=== PATIENT | male | born 1955 | race Caucasian/White ===

== ENCOUNTER 2022-11-03 16:54 | Inpatient (IN) | payer MEDICARE, MEDICAID ==
[~2022-11-03] VITALS: Ht 188 cm; Wt 88.6 kg
[2022-11-03 17:38] LABS: BASOPHILS # (AUTO) 0.1 X10'3 (0-0.2); BASOPHILS % (AUTO) 0.3 % (0-1); EOSINOPHILS # (AUTO) 0.4 X10'3 (0-0.9); EOSINOPHILS % (AUTO) 1.8 % (0-6); HEMATOCRIT 47.1 % (42.0-52.0); HEMOGLOBIN 16.1 g/dl (14.0-17.9); LYMPHOCYTES # (AUTO) 2.6 X10'3 (1.1-4.8); MEAN CORPUSCULAR HEMOGLOBIN 32.2 PG (27.0-31.0); MEAN CORPUSCULAR HGB CONC 34.2 g/dL (33.0-36.5); MEAN CORPUSCULAR VOLUME 94.2 FL (78-98); MONOCYTES # (AUTO) 1.2 X10'3 (0-0.9); MONOCYTES % (AUTO) 6.2 % (2-12); NEUTROPHILS # (AUTO) 15.5 X10'3 (1.8-7.7); NEUTROPHILS % (AUTO) 78.7 % (42-75); PLATELET COUNT 332 X10'3 (140-440); RED CELL DISTRIBUTION WIDTH 13.2 % (11.5-14.5); WHITE BLOOD COUNT 19.7 X10'3 (4.5-11.0)
[2022-11-03 17:58] LABS: ALANINE AMINOTRANSFERASE 18 U/L (12-78); ALBUMIN 3.3 G/DL (3.4-5.0); ALBUMIN/GLOBULIN RATIO 0.7 (1.1-1.5); ALKALINE PHOSPHATASE 107 IU/L (46-116); ANION GAP 11 (8-16); ASPARTATE AMINO TRANSFERASE 14 U/L (10-37); BILIRUBIN,TOTAL 0.3 MG/DL (0.1-1.0); BLOOD UREA NITROGEN 16 MG/DL (7-18); BUN/CREATININE RATIO 13.7 (10.0-20.0); CALCIUM 9.3 MG/DL (8.5-10.1); CHLORIDE 95 MMOL/L (99-107); CREATININE 1.17 MG/DL (0.60-1.10); GLUCOSE 203 MG/DL (70-104); POTASSIUM 4.3 MMOL/L (3.5-5.1); SODIUM 130 MMOL/L (135-145); TOTAL CARBON DIOXIDE 23.6 MMOL/L (24-32); TOTAL PROTEIN 7.8 G/DL (6.4-8.2); eGFR 63 ML/MIN
[2022-11-03] MEDS ORDERED: CefTRIAXone/D5W-Rocephin 1gm 50 ML IV ONE (19:35)
[2022-11-03] MEDS ORDERED: morphine 4 MG/ML inj SYRINge IV ONE (19:40)
--- NOTE | 2022-11-03 20:11 | NUR ---
ivp x2 given by propellant charge zone assembler snack provided
--- NOTE | 2022-11-03 20:15 | NUR ---
us at bedside
[2022-11-03] MEDS ORDERED: temazepam 15mg capsule PO PRN (21:00)
[2022-11-03] MEDS ORDERED: HYDROcodone/acetaminophen 5mg/325mg tablet PO PRN (21:30)
[2022-11-03] MEDS ORDERED: morphine 2 MG/ML inj. syringe IV PRN (21:30)
[2022-11-03] MEDS ORDERED: acetaminophen 325mg tablet PO PRN ×2 (21:30)
[2022-11-03] MEDS ORDERED: mag hydrox/Alum hydrox/simeth 30ml oral suspension PO PRN (21:30)
[2022-11-03] MEDS ORDERED: diphenhydrAMINE 50 mg/ml inj IV PRN (21:30)
[2022-11-03] MEDS ORDERED: bisacodyl 10mg suppository rectal RC PRN (21:30)
[2022-11-03] MEDS ORDERED: ondansetron/PF 4mg/2ml inj IV PRN (21:30)
[2022-11-03] MEDS ORDERED: acetaminophen 650mg rectal suppository RC PRN (21:30)
[2022-11-03] MEDS ORDERED: magnesium 2GM in 50ml NS 50 ML IV PRN (21:30)
[2022-11-03] MEDS ORDERED: diphenhydrAMINE 25mg capsule PO PRN (21:30)
[2022-11-03] MEDS ORDERED: magnesium hydroxide 30ml (MOM) UD suspension PO PRN (21:30)
[2022-11-03] MEDS ORDERED: ondansetron 4mg rapidly disintigrating tab PO PRN (21:30)
[2022-11-03] MEDS ORDERED: magnesium 4gm in 100ml NS 100 ML IV PRN (21:30)
[2022-11-03] MEDS ORDERED: magnesium Cl slow-release 64mg tablet PO PRN (21:30)
[2022-11-03] MEDS ORDERED: dextrose 50%-water 50ml dispensing syringe IV PRN ×2 (21:40)
[2022-11-03] MEDS ORDERED: DEXTROSE 15 GM of carb/4 tabs (each vial/BOTTLE has 4 tablets) PO PRN ×2 (21:40)
[2022-11-03] MEDS ORDERED: glucagon, human recombinant 1mg kit SUBCUT PRN (21:40)
[2022-11-03] MEDS ORDERED: MESSAGE TO PHARMACY PO ONE (21:40)
[2022-11-03 21:56] LABS: HEMOGLOBIN A1C 8.5 % (4.5-6.2)
[2022-11-03] MEDS: normal saline 1000ml 1,000 ML IV SCH (22:06)
[2022-11-03] MEDS ORDERED: VANCOMYCIN 1,500MG inj. 1,500 MG in normal saline 500ml IV soln 300 ML IV SCH (22:10)
[2022-11-03 22:16] LABS: APTT 29 SECONDS (22-32)
[2022-11-03 22:22] LABS: MAGNESIUM 1.9 MG/DL (1.5-2.4); PHOSPHORUS 3.8 MG/DL (2.3-4.5)
[2022-11-03] MEDS ORDERED: TRAM50TA2 PO (23:04)
[2022-11-03] MEDS ORDERED: METF-438 PO (23:04)
[2022-11-03] MEDS ORDERED: METF-436 PO (23:15)
[2022-11-04] MEDS ORDERED: piperacillin/tazo 3.375gm/50ml 50 ML IV SCH
[2022-11-04 01:33] LABS: CLARITY,URINE CLEAR (Clear); COLOR,URINE YELLOW (Yellow); GLUCOSE, URINE 250 mg/dl (Neg); KETONES,URINE TRACE mg/dl (Neg); LEUKOCYTE ESTERASE ,URINE NEGATIVE (Neg); NITRITES, URINE NEGATIVE (Neg); OCCULT BLOOD,URINE NEGATIVE (Neg); PROTEIN,URINE NEGATIVE (Neg); UROBILINOGEN,URINE 0.2 E.U/dL (0.2-1.0)
[2022-11-04 01:51] LABS: URINE AMPHETAMINE SCREEN NEGATIVE (Neg); URINE BARBITUATE SCREEN NEGATIVE (Neg); URINE BENZODIAZEPINES SCREEN NEGATIVE (Neg); URINE CANNABINOID SCREEN NEGATIVE (Neg); URINE COCAINE SCREEN NEGATIVE (Neg); URINE METHADONE SCREEN NEGATIVE (Neg); URINE OPIATE SCREEN POSITIVE (Neg); URINE PHENCYCLIDINE SCREEN NEGATIVE (Neg)
[2022-11-04 02:02] LABS: UA COLLECTION TYPE CLN CATCH MIDSTREAM
[2022-11-04] MEDS: normal saline 1000ml 1,000 ML IV SCH ×2 (05:23→21:50)
[2022-11-04 07:05] VITALS: BP 149/77
[2022-11-04] MEDS: docusate sod 100mg capsule PO SCH ×2 (08:00→19:34)
[2022-11-04] MEDS: CefTRIAXone/D5W-Rocephin 1gm 50 ML IV SCH (08:44)
[2022-11-04] MEDS: pantoprazole 40mg Tablet.DR PO SCH (08:47)
[2022-11-04 08:54] LABS: BASOPHILS # (AUTO) 0.1 X10'3 (0-0.2); BASOPHILS % (AUTO) 0.5 % (0-1); EOSINOPHILS # (AUTO) 0.4 X10'3 (0-0.9); EOSINOPHILS % (AUTO) 2.3 % (0-6); HEMATOCRIT 43.6 % (42.0-52.0); HEMOGLOBIN 14.5 g/dl (14.0-17.9); LYMPHOCYTES # (AUTO) 1.4 X10'3 (1.1-4.8); LYMPHOCYTES % (AUTO) 8.9 % (21-51); MEAN CORPUSCULAR HEMOGLOBIN 31.8 PG (27.0-31.0); MEAN CORPUSCULAR HGB CONC 33.3 g/dL (33.0-36.5); MEAN CORPUSCULAR VOLUME 95.5 FL (78-98); MONOCYTES # (AUTO) 0.9 X10'3 (0-0.9); MONOCYTES % (AUTO) 5.9 % (2-12); NEUTROPHILS # (AUTO) 13.3 X10'3 (1.8-7.7); NEUTROPHILS % (AUTO) 82.4 % (42-75); PLATELET COUNT 276 X10'3 (140-440); RED BLOOD COUNT 4.57 X10'6 (4.70-6.10); RED CELL DISTRIBUTION WIDTH 12.9 % (11.5-14.5); WHITE BLOOD COUNT 16.1 X10'3 (4.5-11.0)
[2022-11-04] MEDS: heparin, porcine 5000 units/ml vial SQ SCH ×2 (08:58→19:34)
[2022-11-04 09:11] LABS: ALANINE AMINOTRANSFERASE 16 U/L (12-78); ALBUMIN 2.9 G/DL (3.4-5.0); ALBUMIN/GLOBULIN RATIO 0.7 (1.1-1.5); ALKALINE PHOSPHATASE 86 IU/L (46-116); ANION GAP 7 (8-16); ASPARTATE AMINO TRANSFERASE 11 U/L (10-37); BILIRUBIN,TOTAL 0.5 MG/DL (0.1-1.0); BLOOD UREA NITROGEN 12 MG/DL (7-18); CALCIUM 8.7 MG/DL (8.5-10.1); CHLORIDE 99 MMOL/L (99-107); CHOL/HDL RATIO 3.5 (0.00-4.99); CHOLESTEROL 135 MG/DL (0-200); GLUCOSE 185 MG/DL (70-104); HDL CHOLESTEROL 39 MG/DL (35-60); LDL CHOLESTEROL 82 MG/DL (50-100); MAGNESIUM 1.9 MG/DL (1.5-2.4); POTASSIUM 4.3 MMOL/L (3.5-5.1); SODIUM 134 MMOL/L (135-145); TOTAL CARBON DIOXIDE 28.5 MMOL/L (24-32); TOTAL PROTEIN 7.3 G/DL (6.4-8.2); TRIGLYCERIDES 86 MG/DL (20-135); eGFR 75 ML/MIN
[2022-11-04] MEDS: vancomycin/NS 1 GM ADD-VANTAGE 250 ML IV SCH ×2 (11:46→22:09)
--- NOTE | 2022-11-04 14:03 | NUR ---
DIABETIC FOOT CARE EDUCATION PROVIDED BY WOUND CARE * Wash your feet daily with lukewarm water and soap. * Dry your feet well, especially between the toes. * Keep the skin moisturized with lotion, but do not apply it between the toes. * Check your feet for blisters, cuts or sores. * Use an emery board to shape your toenails even with the ends of your toes. * Change daily into clean, soft socks or stockings, not too big or too small. * Keep your feet warm and dry. * Preferably wear special padded socks and shoes that fit well. * Never walk barefoot indoors or outdoors. * Examine your shoes everyday for cracks, kiah, nails or anything that could hurt your feet. * Tell your doctor if you find any of these problems or have any concerns after examining your feet.
--- NOTE | 2022-11-04 14:04 | NUR ---
DM Consult "new T2DM": Pt admit DX L great toe cellulitis/ulcer secondary to LLE PVD, tobacco abuse, new onset T2DM A1C 8.5%, hyponatremia, and [place] per EMR. L great toe DM ulcer eschar without staging per [facility] note. Pt seen by RD at bedside for written/verbal DM diet ed w/ RD contact information provided. Pt reports ex- of 27 years who recently passed had DM so he's very familiar with it; pt reports recalling MD mentioning Glu management but not DM specifically. RD gave pt written DM diet ed guidelines for "general healthy eating and Glu management purposes" since unsure if pt aware of DM, verbal high protein diet ed, and encouraged pt to contact dietitian's office if further nutrition questions/concerns. RD notified RN regarding pt not being fully aware of DM DX this admit. Pt PO 100% first meal WB visualized during RD visit; is agreeable to double protein TIDWM to better meet needs dietary notified. No BM yet just admit yesterday refused routine colace this AM per EMR. Will continue to follow. Rec: 1. continue carb controlled diet; double proteins TIDWM for satiety and to better meet estimated needs given large stature 2. monitor PO trends for ONS needs 3. routine bowel care 4. scaled wt this admit Addendum: 11/04/22 at [address] Amended: Links added.
[2022-11-04] MEDS ORDERED: iohexol 350 MG/ML 50ML vial IV ONE (14:48)
[2022-11-04] MEDS ORDERED: iohexol 350MG/ML 100ml bottle IV ONE (14:48)
[2022-11-04 18:00] VITALS: BP 130/82
--- NOTE | 2022-11-04 18:43 | NUR ---
Patient in room ORTHO 4009. I have received report from TAM Duff and had the opportunity to ask questions and assume patient care.
[2022-11-04] MEDS: insulin Lispro (HumaLOG) vial - multi-dose SQ SCH (19:40)
[2022-11-04] MEDS: insulin glargine (Lantus) pen - multi-dose SQ SCH (21:00)
[2022-11-04 22:00] VITALS: BP 140/65
[2022-11-05 06:00] VITALS: BP 140/75
[2022-11-05] MEDS: normal saline 1000ml 1,000 ML IV SCH ×3 (06:00→20:59)
--- NOTE | 2022-11-05 06:35 | NUR ---
Problems reprioritized. Patient report given, questions answered & plan of care reviewed with TAM Moser.
--- NOTE | 2022-11-05 06:57 | NUR ---
Patient in room ORTHO 4009. I have received report from TAM Jacobson and had the opportunity to ask questions and assume patient care.
[2022-11-05 07:15] LABS: BASOPHILS # (AUTO) 0.1 X10'3 (0-0.2); BASOPHILS % (AUTO) 0.7 % (0-1); EOSINOPHILS # (AUTO) 0.2 X10'3 (0-0.9); EOSINOPHILS % (AUTO) 1.7 % (0-6); HEMATOCRIT 41.7 % (42.0-52.0); LYMPHOCYTES # (AUTO) 2.1 X10'3 (1.1-4.8); LYMPHOCYTES % (AUTO) 14.8 % (21-51); MEAN CORPUSCULAR HEMOGLOBIN 31.8 PG (27.0-31.0); MEAN CORPUSCULAR HGB CONC 33.6 g/dL (33.0-36.5); MEAN CORPUSCULAR VOLUME 94.8 FL (78-98); MEAN PLATELET VOLUME 8.3 FL (7.4-10.4); MONOCYTES # (AUTO) 0.8 X10'3 (0-0.9); MONOCYTES % (AUTO) 5.5 % (2-12); NEUTROPHILS # (AUTO) 10.9 X10'3 (1.8-7.7); NEUTROPHILS % (AUTO) 77.3 % (42-75); PLATELET COUNT 270 X10'3 (140-440); RED CELL DISTRIBUTION WIDTH 12.8 % (11.5-14.5); WHITE BLOOD COUNT 14.1 X10'3 (4.5-11.0)
[2022-11-05 07:28] LABS: ALANINE AMINOTRANSFERASE 25 U/L (12-78); ALBUMIN 2.6 G/DL (3.4-5.0); ALBUMIN/GLOBULIN RATIO 0.7 (1.1-1.5); ALKALINE PHOSPHATASE 78 IU/L (46-116); ANION GAP 6 (8-16); ASPARTATE AMINO TRANSFERASE 20 U/L (10-37); BILIRUBIN,TOTAL 0.3 MG/DL (0.1-1.0); BLOOD UREA NITROGEN 12 MG/DL (7-18); BUN/CREATININE RATIO 15.2 (10.0-20.0); CALCIUM 8.4 MG/DL (8.5-10.1); CHLORIDE 102 MMOL/L (99-107); CREATININE 0.79 MG/DL (0.60-1.10); GLUCOSE 183 MG/DL (70-104); POTASSIUM 4.1 MMOL/L (3.5-5.1); SODIUM 132 MMOL/L (135-145); TOTAL CARBON DIOXIDE 23.7 MMOL/L (24-32); TOTAL PROTEIN 6.5 G/DL (6.4-8.2); eGFR > 90 ML/MIN
[2022-11-05] MEDS: CefTRIAXone/D5W-Rocephin 1gm 50 ML IV SCH (08:49)
[2022-11-05] MEDS: insulin Lispro (HumaLOG) vial - multi-dose SQ SCH ×3 (09:13→19:26)
[2022-11-05] MEDS: pantoprazole 40mg Tablet.DR PO SCH (09:16)
[2022-11-05] MEDS: docusate sod 100mg capsule PO SCH ×2 (09:16→19:23)
[2022-11-05] MEDS: heparin, porcine 5000 units/ml vial SQ SCH (09:16)
[2022-11-05] MEDS ORDERED: VANCOMYCIN LEVEL IV ONE (09:30)
[2022-11-05] MEDS: HYDROcodone/acetaminophen 10/325mg tab PO PRN (09:32)
[2022-11-05] MEDS: vancomycin/NS 1 GM ADD-VANTAGE 250 ML IV SCH (09:59)
[2022-11-05 10:00] VITALS: BP 150/79
[2022-11-05] MEDS ORDERED: heparin 10,000 units/1 ML INJ IV ONE (11:40)
[2022-11-05 14:02] LABS: APTT 29 SECONDS (22-32)
[2022-11-05] MEDS: heparin 25,000 UNIT/250ml bag 250 ML IV PRN (14:43)
[2022-11-05] MEDS: heparin 10,000 units/1 ML INJ IV PRN (14:47)
[2022-11-05 18:00] VITALS: BP 146/72
--- NOTE | 2022-11-05 18:15 | NUR ---
Patient in room ORTHO 4009. I have received report from TAM Moser and had the opportunity to ask questions and assume patient care.
--- NOTE | 2022-11-05 18:34 | NUR ---
Problems reprioritized. Patient report given, questions answered & plan of care reviewed with TAM Jacobson.
[2022-11-05] MEDS: insulin glargine (Lantus) pen - multi-dose SQ SCH (21:00)
[2022-11-05 22:00] VITALS: BP 151/75
[2022-11-05] MEDS: VANCOMYCIN 1,500MG in NS 300ml IVPB IV SCH (22:07)
[2022-11-05 22:12] LABS: APTT 51 SECONDS (22-32)
[2022-11-06] VITALS (11 sets, daily range): BP systolic 125–165; BP diastolic 69–89
[2022-11-06 04:35] LABS: BASOPHILS # (AUTO) 0.1 X10'3 (0-0.2); BASOPHILS % (AUTO) 0.9 % (0-1); EOSINOPHILS # (AUTO) 0.5 X10'3 (0-0.9); HEMATOCRIT 43.1 % (42.0-52.0); HEMOGLOBIN 14.4 g/dl (14.0-17.9); LYMPHOCYTES % (AUTO) 13.1 % (21-51); MEAN CORPUSCULAR HEMOGLOBIN 31.9 PG (27.0-31.0); MEAN CORPUSCULAR HGB CONC 33.4 g/dL (33.0-36.5); MEAN CORPUSCULAR VOLUME 95.4 FL (78-98); MEAN PLATELET VOLUME 8.2 FL (7.4-10.4); MONOCYTES # (AUTO) 0.8 X10'3 (0-0.9); MONOCYTES % (AUTO) 5.2 % (2-12); NEUTROPHILS # (AUTO) 11.9 X10'3 (1.8-7.7); NEUTROPHILS % (AUTO) 77.8 % (42-75); PLATELET COUNT 281 X10'3 (140-440); RED BLOOD COUNT 4.52 X10'6 (4.70-6.10); RED CELL DISTRIBUTION WIDTH 12.7 % (11.5-14.5); WHITE BLOOD COUNT 15.2 X10'3 (4.5-11.0)
[2022-11-06 05:03] LABS: ALANINE AMINOTRANSFERASE 28 U/L (12-78); ALBUMIN 2.7 G/DL (3.4-5.0); ALBUMIN/GLOBULIN RATIO 0.6 (1.1-1.5); ALKALINE PHOSPHATASE 81 IU/L (46-116); ANION GAP 7 (8-16); ASPARTATE AMINO TRANSFERASE 18 U/L (10-37); BILIRUBIN,TOTAL 0.3 MG/DL (0.1-1.0); BLOOD UREA NITROGEN 13 MG/DL (7-18); BUN/CREATININE RATIO 16.3 (10.0-20.0); CALCIUM 8.6 MG/DL (8.5-10.1); CHLORIDE 101 MMOL/L (99-107); GLUCOSE 174 MG/DL (70-104); POTASSIUM 4.3 MMOL/L (3.5-5.1); SODIUM 133 MMOL/L (135-145); TOTAL CARBON DIOXIDE 25.2 MMOL/L (24-32); TOTAL PROTEIN 6.9 G/DL (6.4-8.2); eGFR > 90 ML/MIN
[2022-11-06 05:11] LABS: PLATELET ESTIMATE NORMAL; TOTAL CELLS COUNTED 100
[2022-11-06] MEDS: normal saline 1000ml 1,000 ML IV SCH ×2 (06:15→16:15)
--- NOTE | 2022-11-06 06:21 | NUR ---
Problems reprioritized. Patient report given, questions answered & plan of care reviewed with TAM Moser.
--- NOTE | 2022-11-06 06:44 | NUR ---
Patient in room ORTHO 4009. I have received report from TAM Jacobson and had the opportunity to ask questions and assume patient care.
[2022-11-06] MEDS: pantoprazole 40mg Tablet.DR PO SCH (07:28)
[2022-11-06] MEDS: CefTRIAXone/D5W-Rocephin 1gm 50 ML IV SCH (07:28)
[2022-11-06] MEDS: docusate sod 100mg capsule PO SCH ×2 (07:28→21:03)
[2022-11-06] MEDS ORDERED: iohexol 300mg/ml 100ml inj. ONE (10:15)
[2022-11-06] MEDS: VANCOMYCIN 1,500MG in NS 300ml IVPB IV SCH ×2 (10:18→21:08)
[2022-11-06] MEDS: HYDROcodone/acetaminophen 10/325mg tab PO PRN (10:27)
[2022-11-06] MEDS ORDERED: LIDOcaine 1% 30ml preserv. free vial ONE (10:30)
[2022-11-06] MEDS ORDERED: heparin 1,000 UNITS/NS 500ml 500 ML ONE (10:30)
[2022-11-06] MEDS ORDERED: midazolam 1 mg/ML 2ml injection ONE (12:20)
[2022-11-06] MEDS ORDERED: fentaNYL/PF 50MCG/1 ML 2ML syringe ONE (12:20)
--- NOTE | 2022-11-06 13:06 | NUR ---
PRESSURE ULCER EDUCATION: DEFINITION: A pressure ulcer is an area of skin that breaks down when you stay in one position too long. The constant pressure against the skin reduces the blood flow to that area and the affected tissue dies. CAUSES: "Being bedridden or in a wheelchair "Fragile skin "Having a chronic condition, such as diabetes or vascular disease "Inability to move certain parts of your body without assistance "Older age "Incontinence of urine or stool SYMPTOMS: "A reddened area that DOES NOT turn white when pressed on - this can be the beginning of a pressure ulcer "A blister, deep sore or a crater - these can be advanced pressure ulcers FIRST AID: "Relieve the pressure on this area "Keep the area clean and dry "Call your primary doctor if you see any of the above symptoms "DO NOT massage the area "DO NOT use a donut shaped or ring shaped pillow- these actually interfere with the blood flow and cause complications PREVENTION: "Check for pressure ulcers everyday "Change position at least every two hours to relieve pressure "Use items that help relieve pressure- pillows, sheepskin, foam padding, and powders. "Keep skin clean and dry "Eat healthy well balanced meals "Exercise daily IF YOU SEE ANY OF THESE SYMPTOMS WHILE IN THE HOSPITAL - TELL YOUR NURSE IMMEDIATELY. IF YOU SEE ANY OF THESE SYMPTOMS WHILE AT HOME OR HAVE ANY QUESTIONS OR CONCERNS ABOUT PRESSURE ULCERS - CALL YOUR PRIMARY DOCTOR IMMEDIATELY. Addendum: 11/06/22 at 1307 by Elen Morales LVN Amended: Links added.
--- NOTE | 2022-11-06 18:25 | NUR ---
Problems reprioritized. Patient report given, questions answered & plan of care reviewed with TAM Colin.
[2022-11-06] MEDS ORDERED: aminophylline 250mg/10ml inj. IV PRN (19:50)
[2022-11-06] MEDS ORDERED: regadenoson 0.4mg/5ml syringe IV PRN (19:50)
[2022-11-06] MEDS ORDERED: nitroGLYCERIN 0.4mg SUBLingual tab SL PRN (19:50)
[2022-11-06] MEDS ORDERED: PERFLUTREN PROTEIN-A MICROSPHR (Optison) 0.22 MG/ML 3ML VIAL IV ONE (19:50)
[2022-11-06] MEDS ORDERED: metoprolol tartrate 1mg/ml inj IV PRN (19:50)
[2022-11-06] MEDS: insulin glargine (Lantus) pen - multi-dose SQ SCH (21:00)
[2022-11-06] MEDS: heparin 25,000 UNIT/250ml bag 250 ML IV PRN (21:13)
--- NOTE | 2022-11-06 22:00 | NUR ---
Pt eating late, as he had to lay flat for several hours. Pts Blood sugar taken after late dinner and was 242, and pt is going to be NPO after MN for tests in am, Pt has opted not to have Pj hargrove. Addendum: 11/06/22 at 2254 by Dixie Corea RN Amended: Links added.
[2022-11-07 00:35] LABS: APTT 36 SECONDS (22-32)
[2022-11-07] MEDS: heparin 10,000 units/1 ML INJ IV PRN ×2 (00:55→20:30)
[2022-11-07 02:00] VITALS: BP 125/63
[2022-11-07 06:00] VITALS: BP 142/58
--- NOTE | 2022-11-07 06:40 | NUR ---
Patient in room ORTHO 4009. I have received report from TAM Colin and had the opportunity to ask questions and assume patient care.
[2022-11-07 07:02] LABS: BASOPHILS # (AUTO) 0.1 X10'3 (0-0.2); BASOPHILS % (AUTO) 0.7 % (0-1); EOSINOPHILS # (AUTO) 0.4 X10'3 (0-0.9); EOSINOPHILS % (AUTO) 3.3 % (0-6); HEMATOCRIT 43.5 % (42.0-52.0); HEMOGLOBIN 14.8 g/dl (14.0-17.9); LYMPHOCYTES # (AUTO) 2.1 X10'3 (1.1-4.8); LYMPHOCYTES % (AUTO) 15.8 % (21-51); MEAN CORPUSCULAR HEMOGLOBIN 32.1 PG (27.0-31.0); MEAN CORPUSCULAR VOLUME 94.3 FL (78-98); MEAN PLATELET VOLUME 7.9 FL (7.4-10.4); MONOCYTES # (AUTO) 0.7 X10'3 (0-0.9); NEUTROPHILS # (AUTO) 9.7 X10'3 (1.8-7.7); NEUTROPHILS % (AUTO) 75.2 % (42-75); PLATELET COUNT 313 X10'3 (140-440); RED BLOOD COUNT 4.61 X10'6 (4.70-6.10); RED CELL DISTRIBUTION WIDTH 12.7 % (11.5-14.5)
[2022-11-07] MEDS: docusate sod 100mg capsule PO SCH ×2 (07:39→20:00)
[2022-11-07] MEDS: CefTRIAXone/D5W-Rocephin 1gm 50 ML IV SCH (07:40)
[2022-11-07] MEDS: pantoprazole 40mg Tablet.DR PO SCH (07:40)
[2022-11-07] MEDS: atorvastatin 20mg tablet PO SCH (07:40)
[2022-11-07 08:00] LABS: ALANINE AMINOTRANSFERASE 27 U/L (12-78); ALBUMIN 2.7 G/DL (3.4-5.0); ALBUMIN/GLOBULIN RATIO 0.6 (1.1-1.5); ALKALINE PHOSPHATASE 81 IU/L (46-116); ANION GAP 11 (8-16); ASPARTATE AMINO TRANSFERASE 17 U/L (10-37); BILIRUBIN,TOTAL 0.4 MG/DL (0.1-1.0); BLOOD UREA NITROGEN 16 MG/DL (7-18); CHLORIDE 101 MMOL/L (99-107); CREATININE 0.94 MG/DL (0.60-1.10); GLUCOSE 164 MG/DL (70-104); MAGNESIUM 2.2 MG/DL (1.5-2.4); POTASSIUM 4.3 MMOL/L (3.5-5.1); SODIUM 135 MMOL/L (135-145); TOTAL CARBON DIOXIDE 23.4 MMOL/L (24-32); TOTAL PROTEIN 6.9 G/DL (6.4-8.2); eGFR 81 ML/MIN
--- NOTE | 2022-11-07 09:24 | NUR ---
Patient refused insulin due to being NPO.
[2022-11-07] MEDS ORDERED: VANCOMYCIN LEVEL IV ONE (09:30)
[2022-11-07 10:00] VITALS: BP 128/81
[2022-11-07] MEDS: VANCOMYCIN 1,500MG in NS 300ml IVPB IV SCH (10:25)
[2022-11-07 13:01] LABS: APTT 50 SECONDS (22-32)
[2022-11-07 14:00] VITALS: BP 129/74
[2022-11-07] MEDS: HYDROcodone/acetaminophen 10/325mg tab PO PRN ×2 (14:58→20:03)
[2022-11-07] MEDS: morphine 2 MG/ML inj. syringe IV PRN (17:03)
[2022-11-07 18:00] VITALS: BP 146/76
--- NOTE | 2022-11-07 18:24 | NUR ---
Problems reprioritized. Patient report given, questions answered & plan of care reviewed with TAM Winn.
[2022-11-07] MEDS: insulin Lispro (HumaLOG) vial - multi-dose SQ SCH (18:45)
[2022-11-07 20:10] LABS: APTT 44 SECONDS (22-32)
[2022-11-07] MEDS: heparin 25,000 UNIT/250ml bag 250 ML IV PRN (20:40)
[2022-11-07] MEDS: insulin glargine (Lantus) pen - multi-dose SQ SCH (21:00)
--- NOTE | 2022-11-07 21:40 | NUR ---
called MD to let him know that patient met protocol for BS at dinner time and insulin was administered for the first time. BS was 86 at this time. Order given to hold Lantus at this time.
[2022-11-07 22:00] VITALS: BP 124/69
[2022-11-07] MEDS: vancomycin 1,750 MG in NS 350ml IV soln IV SCH (23:17)
[2022-11-08] MEDS: HYDROcodone/acetaminophen 10/325mg tab PO PRN ×3 (00:04→18:49)
[2022-11-08] MEDS: morphine 2 MG/ML inj. syringe IV PRN ×3 (02:01→12:28)
--- NOTE | 2022-11-08 06:17 | NUR ---
Problems reprioritized. Patient report given, questions answered & plan of care reviewed with TAM Wells.
[2022-11-08 06:28] VITALS: BP 125/68
--- NOTE | 2022-11-08 06:34 | NUR ---
Patient in room ORTHO 4009. I have received report from Tatum TURCIOS and had the opportunity to ask questions and assume patient care.
[2022-11-08 06:51] LABS: BASOPHILS # (AUTO) 0.1 X10'3 (0-0.2); BASOPHILS % (AUTO) 0.9 % (0-1); EOSINOPHILS # (AUTO) 0.6 X10'3 (0-0.9); EOSINOPHILS % (AUTO) 5.5 % (0-6); HEMATOCRIT 41.1 % (42.0-52.0); LYMPHOCYTES # (AUTO) 2.6 X10'3 (1.1-4.8); LYMPHOCYTES % (AUTO) 24.2 % (21-51); MEAN CORPUSCULAR HEMOGLOBIN 32.2 PG (27.0-31.0); MEAN CORPUSCULAR VOLUME 94.6 FL (78-98); MEAN PLATELET VOLUME 8.5 FL (7.4-10.4); MONOCYTES # (AUTO) 0.6 X10'3 (0-0.9); NEUTROPHILS # (AUTO) 6.7 X10'3 (1.8-7.7); NEUTROPHILS % (AUTO) 63.4 % (42-75); PLATELET COUNT 324 X10'3 (140-440); RED BLOOD COUNT 4.35 X10'6 (4.70-6.10); RED CELL DISTRIBUTION WIDTH 12.5 % (11.5-14.5); WHITE BLOOD COUNT 10.5 X10'3 (4.5-11.0)
[2022-11-08 06:57] LABS: ALANINE AMINOTRANSFERASE 33 U/L (12-78); ALBUMIN 2.7 G/DL (3.4-5.0); ALBUMIN/GLOBULIN RATIO 0.7 (1.1-1.5); ALKALINE PHOSPHATASE 80 IU/L (46-116); ANION GAP 10 (8-16); ASPARTATE AMINO TRANSFERASE 24 U/L (10-37); BILIRUBIN,TOTAL 0.3 MG/DL (0.1-1.0); BLOOD UREA NITROGEN 20 MG/DL (7-18); BUN/CREATININE RATIO 18.2 (10.0-20.0); CALCIUM 8.6 MG/DL (8.5-10.1); CHLORIDE 100 MMOL/L (99-107); GLUCOSE 252 MG/DL (70-104); POTASSIUM 3.9 MMOL/L (3.5-5.1); SODIUM 132 MMOL/L (135-145); TOTAL CARBON DIOXIDE 22.3 MMOL/L (24-32); TOTAL PROTEIN 6.5 G/DL (6.4-8.2); eGFR 67 ML/MIN
[2022-11-08] MEDS: pantoprazole 40mg Tablet.DR PO SCH (07:44)
[2022-11-08] MEDS: CefTRIAXone/D5W-Rocephin 1gm 50 ML IV SCH (07:44)
[2022-11-08] MEDS: atorvastatin 20mg tablet PO SCH (07:44)
[2022-11-08] MEDS: docusate sod 100mg capsule PO SCH ×2 (07:44→20:05)
[2022-11-08] MEDS: insulin Lispro (HumaLOG) vial - multi-dose SQ SCH ×3 (09:09→18:52)
[2022-11-08 10:00] VITALS: BP 120/60
--- NOTE | 2022-11-08 11:13 | NUR ---
F/u 11/08: Pt PO ~94% avg carb controlled diet w/ double protein TIDWM meeting protein needs and ~89% estimated energy needs. Pending possible L femoropopliteal bypass 11/11 per EMR; may benefit from Clive post-op. LBM 11/03 receiving routine colace BID; TRISHA oakes MD regarding changing PRN MoM to routine if agreeable since pt has yet to receive this admit. Will continue to follow. Rec: 1. continue carb controlled diet; double proteins TIDWM for satiety and to better meet estimated needs given large stature 2. monitor for Clive ONS needs following OR 11/11 3. routine bowel care; utilize PRN bowel regimen w/ 5 days constipation 4. scaled wt this admit; subsequent weekly wt Addendum: 11/08/22 at [address] Amended: Links added.
[2022-11-08] MEDS: vancomycin 1,750 MG in NS 350ml IV soln IV SCH ×2 (12:38→21:57)
[2022-11-08 18:00] VITALS: BP 125/65
[2022-11-08] MEDS: heparin 25,000 UNIT/250ml bag 250 ML IV PRN (18:09)
--- NOTE | 2022-11-08 18:21 | NUR ---
Problems reprioritized. Patient report given, questions answered & plan of care reviewed with Tatum TURCIOS.
[2022-11-08] MEDS: insulin glargine (Lantus) pen - multi-dose SQ SCH (21:10)
[2022-11-08 22:00] VITALS: BP 126/64
[2022-11-09] VITALS (12 sets, daily range): BP systolic 127–183; BP diastolic 60–93
[2022-11-09] MEDS: HYDROcodone/acetaminophen 10/325mg tab PO PRN (02:55)
[2022-11-09] MEDS: heparin 10,000 units/1 ML INJ IV PRN (05:50)
--- NOTE | 2022-11-09 06:35 | NUR ---
Problems reprioritized. Patient report given, questions answered & plan of care reviewed with TAM Duff.
[2022-11-09] MEDS: pantoprazole 40mg Tablet.DR PO SCH (07:56)
[2022-11-09] MEDS: CefTRIAXone/D5W-Rocephin 1gm 50 ML IV SCH (07:56)
[2022-11-09] MEDS: docusate sod 100mg capsule PO SCH ×2 (08:00→19:39)
[2022-11-09] MEDS: atorvastatin 20mg tablet PO SCH (08:00)
--- NOTE | 2022-11-09 08:12 | NUR ---
to Stress lab via wc
[2022-11-09] MEDS ORDERED: regadenoson 0.4mg/5ml syringe IV ONE (08:45)
[2022-11-09] MEDS ORDERED: VANCOMYCIN LEVEL IV ONE (09:30)
[2022-11-09] MEDS: heparin 25,000 UNIT/250ml bag 250 ML IV PRN (15:06)
[2022-11-09] MEDS: VANCOMYCIN 1,500MG in normal saline IV soln 300 ML IV SCH (16:04)
--- NOTE | 2022-11-09 18:50 | NUR ---
Patient in room ORTHO 4009. I have received report from Sherin TURCIOS and had the opportunity to ask questions and assume patient care.
[2022-11-09] MEDS: insulin Lispro (HumaLOG) vial - multi-dose SQ SCH (19:34)
[2022-11-09] MEDS ORDERED: magnesium hydroxide 30ml (MOM) UD suspension PO ONE (20:00)
[2022-11-09] MEDS: insulin glargine (Lantus) pen - multi-dose SQ SCH (21:58)
[2022-11-10] VITALS (16 sets, daily range): BP systolic 116–191; BP diastolic 58–80
--- NOTE | 2022-11-10 | NUR ---
2332 PTT result = 48. As in the normal range (between 45 -60) no change made. Next lab scheduled for 531.
[2022-11-10] MEDS: VANCOMYCIN 1,500MG in normal saline IV soln 300 ML IV SCH ×2 (02:09→16:13)
[2022-11-10] MEDS: HYDROcodone/acetaminophen 10/325mg tab PO PRN ×3 (02:15→22:59)
--- NOTE | 2022-11-10 06:27 | NUR ---
Patient in room ORTHO 4009. I have received report from Rafat james and had the opportunity to ask questions and assume patient care.
--- NOTE | 2022-11-10 06:45 | NUR ---
Problems reprioritized. Patient report given, questions answered & plan of care reviewed with Milady TURCIOS.
[2022-11-10 07:15] LABS: BASOPHILS # (AUTO) 0.1 X10'3 (0-0.2); BASOPHILS % (AUTO) 0.7 % (0-1); EOSINOPHILS # (AUTO) 0.4 X10'3 (0-0.9); EOSINOPHILS % (AUTO) 4.3 % (0-6); HEMATOCRIT 40.4 % (42.0-52.0); HEMOGLOBIN 13.6 g/dl (14.0-17.9); LYMPHOCYTES # (AUTO) 2.2 X10'3 (1.1-4.8); LYMPHOCYTES % (AUTO) 21.7 % (21-51); MEAN CORPUSCULAR HEMOGLOBIN 31.8 PG (27.0-31.0); MEAN CORPUSCULAR HGB CONC 33.6 g/dL (33.0-36.5); MEAN CORPUSCULAR VOLUME 94.7 FL (78-98); MEAN PLATELET VOLUME 7.8 FL (7.4-10.4); MONOCYTES # (AUTO) 0.6 X10'3 (0-0.9); MONOCYTES % (AUTO) 6.2 % (2-12); NEUTROPHILS # (AUTO) 6.9 X10'3 (1.8-7.7); NEUTROPHILS % (AUTO) 67.1 % (42-75); PLATELET COUNT 313 X10'3 (140-440); RED BLOOD COUNT 4.27 X10'6 (4.70-6.10); RED CELL DISTRIBUTION WIDTH 12.9 % (11.5-14.5); WHITE BLOOD COUNT 10.2 X10'3 (4.5-11.0)
[2022-11-10] MEDS: atorvastatin 20mg tablet PO SCH (07:43)
[2022-11-10] MEDS: CefTRIAXone/D5W-Rocephin 1gm 50 ML IV SCH (07:43)
[2022-11-10] MEDS: pantoprazole 40mg Tablet.DR PO SCH (07:43)
[2022-11-10] MEDS: docusate sod 100mg capsule PO SCH ×2 (07:48→19:29)
[2022-11-10 07:51] LABS: ALANINE AMINOTRANSFERASE 43 U/L (12-78); ALBUMIN 2.8 G/DL (3.4-5.0); ALBUMIN/GLOBULIN RATIO 0.8 (1.1-1.5); ALKALINE PHOSPHATASE 72 IU/L (46-116); ANION GAP 6 (8-16); ASPARTATE AMINO TRANSFERASE 21 U/L (10-37); BILIRUBIN,TOTAL 0.3 MG/DL (0.1-1.0); BLOOD UREA NITROGEN 17 MG/DL (7-18); BUN/CREATININE RATIO 17.3 (10.0-20.0); CALCIUM 8.6 MG/DL (8.5-10.1); CHLORIDE 103 MMOL/L (99-107); CREATININE 0.98 MG/DL (0.60-1.10); GLUCOSE 151 MG/DL (70-104); POTASSIUM 4.2 MMOL/L (3.5-5.1); SODIUM 137 MMOL/L (135-145); TOTAL CARBON DIOXIDE 27.8 MMOL/L (24-32); TOTAL PROTEIN 6.4 G/DL (6.4-8.2); eGFR 77 ML/MIN
--- NOTE | 2022-11-10 08:25 | NUR ---
called Dr Weaver with regards when to turn off heparin. Stated Will call me back with orders
--- NOTE | 2022-11-10 10:14 | NUR ---
DR welsh in to see patient, ordered for Heparin to be stopped. patient PTT therapeutic 51.
[2022-11-10] MEDS ORDERED: heparin 10,000 units/1 ML INJ ONE (10:57)
--- NOTE | 2022-11-10 12:09 | NUR ---
patient appears stable transferred to OR 1100hrs.
[2022-11-10] MEDS ORDERED: sevoflurane 250ml liquid IH ONE (12:16)
[2022-11-10] MEDS ORDERED: fentaNYL /PF 50mcg/ml 5ml ampule ONE (12:18)
[2022-11-10] MEDS ORDERED: propofol inj 20 ML IV ONE (12:18)
[2022-11-10] MEDS ORDERED: midazolam 1 mg/ML 2ml injection ONE (12:18)
[2022-11-10] MEDS ORDERED: rocuronium 10mg/ml inj IV ONE ×2 (12:19→14:47)
[2022-11-10] MEDS ORDERED: meperidine/PF 25mg/ml syringe IV PRN ×3 (14:15)
[2022-11-10] MEDS ORDERED: morphine 2 MG/ML inj. syringe IV PRN (14:15)
[2022-11-10] MEDS ORDERED: labetalol 20mg/4ml (5mg/ml) syringe IV PRN (14:15)
[2022-11-10] MEDS ORDERED: ringers solution, lacted 1,000 ML IV SCH (14:15)
[2022-11-10] MEDS ORDERED: ondansetron/PF 4mg/2ml inj IV PRN (14:15)
[2022-11-10] MEDS ORDERED: morphine 4 MG/ML inj SYRINge IV PRN (14:15)
[2022-11-10] MEDS ORDERED: ePHEDrine 50MG/ML INJ. ONE (14:47)
[2022-11-10] MEDS ORDERED: glycopyrrolate 0.2mg/ml inj ONE (14:47)
[2022-11-10] MEDS ORDERED: neostigmine methylsulfate 1 MG/ML 10ml vial ONE (14:47)
[2022-11-10] MEDS ORDERED: heparin 1,000unit/ml 10ml vial 10 ML ONE (14:49)
[2022-11-10] MEDS ORDERED: labetalol 20mg/4ml (5mg/ml) syringe IV ONE (14:50)
[2022-11-10] MEDS ORDERED: naloxone 0.4 mg/ml inj IV PRN (15:10)
[2022-11-10] MEDS ORDERED: HYDROcodone/acetaminophen 10/325mg tab PO PRN (15:10)
--- NOTE | 2022-11-10 15:20 | NUR ---
Received from OR via gurney, accompanied by Anesthesiologist and report given by Anesthesiologist. PATIENT WAKING UP, NO S/S OF PAIN, V/S WNL, 20G TO RUE, ART LINE RUE, F/C DRAINING CLEAR YELLOW URINE, PROVENA DRESSING CDI NO LEAKS DETECTED SIGHT TO LEFT GROIN W/ NO S/S OF COMPLICATIONS. CL RIGHT IJ CVP 7
[2022-11-10] MEDS: hydrALAZINE 20mg/ml inj. IV PRN ×2 (15:43→16:52)
[2022-11-10] MEDS: aspirin 81mg, enteric-coated 1 TAB TABLET.DR PO SCH (16:00)
--- NOTE | 2022-11-10 16:05 | NUR ---
PATIENT A&OX4, STATES PAIN WELL CONTROLLED, V/S WNL, 20G TO RUE AND LUE, ART LINE RUE, F/C DRAINING CLEAR YELLOW URINE, PROVENA DRESSING CDI NO LEAKS DETECTED SIGHT TO LEFT GROIN W/ NO S/S OF COMPLICATIONS. CL RIGHT IJ. PATIENT TAKEN TO ROOM WITH ALL BELONGINGS AND HOOKED UP TO MONITORS IN ROOM AND GIVEN CALL LIGHT, REPORT GIVEN TO RN WHO HAS TAKEN OVER PATIENT CARE.
[2022-11-10] MEDS: morphine 2 MG/ML inj. syringe IV PRN (16:26)
[2022-11-10] MEDS ORDERED: hydrALAZINE 20mg/ml inj. IV PRN (17:05)
--- NOTE | 2022-11-10 17:11 | NUR ---
Pt. to room 2044 from Recovery Room at 1615. Hooked up to bedside monitor. A & O. C/o pain. Medicated with Morphine. Call light given. SBP > 180. RN called Dr. Weaver. Order received for PRN Hydralazine.
--- NOTE | 2022-11-10 17:19 | NUR ---
Dressing noted to left inner thigh with minimal draining, Prevena to left groin with good seal.
[2022-11-10] MEDS: insulin Lispro (HumaLOG) vial - multi-dose SQ SCH (17:35)
--- NOTE | 2022-11-10 18:30 | NUR ---
Patient in room ICU 2043. I have received report from TAM Collins and had the opportunity to ask questions and assume patient care.
[2022-11-10] MEDS: insulin glargine (Lantus) pen - multi-dose SQ SCH (20:54)
[2022-11-11] VITALS (19 sets, daily range): BP systolic 115–155; BP diastolic 48–85
[2022-11-11] MEDS ORDERED: VANCOMYCIN LEVEL IV ONE (01:30)
[2022-11-11 01:53] LABS: BASOPHILS % (AUTO) 0.4 % (0-1); EOSINOPHILS # (AUTO) 0.3 X10'3 (0-0.9); EOSINOPHILS % (AUTO) 2.4 % (0-6); HEMATOCRIT 39.9 % (42.0-52.0); HEMOGLOBIN 13.3 g/dl (14.0-17.9); LYMPHOCYTES # (AUTO) 1.8 X10'3 (1.1-4.8); LYMPHOCYTES % (AUTO) 14.7 % (21-51); MEAN CORPUSCULAR HEMOGLOBIN 31.9 PG (27.0-31.0); MEAN CORPUSCULAR HGB CONC 33.3 g/dL (33.0-36.5); MEAN CORPUSCULAR VOLUME 95.9 FL (78-98); MONOCYTES # (AUTO) 0.7 X10'3 (0-0.9); MONOCYTES % (AUTO) 5.9 % (2-12); NEUTROPHILS # (AUTO) 9.2 X10'3 (1.8-7.7); NEUTROPHILS % (AUTO) 76.6 % (42-75); PLATELET COUNT 307 X10'3 (140-440); RED BLOOD COUNT 4.16 X10'6 (4.70-6.10); RED CELL DISTRIBUTION WIDTH 13.1 % (11.5-14.5)
[2022-11-11 02:05] LABS: ALANINE AMINOTRANSFERASE 39 U/L (12-78); ALBUMIN 2.8 G/DL (3.4-5.0); ALBUMIN/GLOBULIN RATIO 0.8 (1.1-1.5); ALKALINE PHOSPHATASE 74 IU/L (46-116); ANION GAP 8 (8-16); ASPARTATE AMINO TRANSFERASE 23 U/L (10-37); BILIRUBIN,TOTAL 0.4 MG/DL (0.1-1.0); BLOOD UREA NITROGEN 13 MG/DL (7-18); BUN/CREATININE RATIO 16.3 (10.0-20.0); CALCIUM 8.7 MG/DL (8.5-10.1); CHLORIDE 102 MMOL/L (99-107); GLUCOSE 154 MG/DL (70-104); POTASSIUM 4.2 MMOL/L (3.5-5.1); SODIUM 134 MMOL/L (135-145); TOTAL CARBON DIOXIDE 23.9 MMOL/L (24-32); TOTAL PROTEIN 6.3 G/DL (6.4-8.2); VANCOMYCIN,TROUGH 18.2 UG/ML (6.0-14.0); eGFR > 90 ML/MIN
[2022-11-11] MEDS: VANCOMYCIN 1,500MG in normal saline IV soln 300 ML IV SCH ×2 (02:15→14:33)
[2022-11-11] MEDS: HYDROcodone/acetaminophen 10/325mg tab PO PRN ×5 (04:52→23:58)
--- NOTE | 2022-11-11 06:11 | NUR ---
Problems reprioritized. Patient report given, questions answered & plan of care reviewed with TAM Carpenter.
--- NOTE | 2022-11-11 06:23 | NUR ---
Problems reprioritized. Patient report given, questions answered & plan of care reviewed with TAM Calvillo.
--- NOTE | 2022-11-11 06:30 | NUR ---
Patient in room ICU 2043. I have received report from Kristen TURCIOS and had the opportunity to ask questions and assume patient care.
[2022-11-11] MEDS: atorvastatin 20mg tablet PO SCH (07:23)
[2022-11-11] MEDS: CefTRIAXone/D5W-Rocephin 1gm 50 ML IV SCH (07:23)
[2022-11-11] MEDS: pantoprazole 40mg Tablet.DR PO SCH (07:23)
[2022-11-11] MEDS: aspirin 81mg, enteric-coated 1 TAB TABLET.DR PO SCH (07:23)
[2022-11-11] MEDS: docusate sod 100mg capsule PO SCH ×2 (07:23→20:00)
[2022-11-11] MEDS: insulin Lispro (HumaLOG) vial - multi-dose SQ SCH ×4 (08:24→21:40)
--- NOTE | 2022-11-11 12:34 | NUR ---
MD Visit Dr. Weaver & Dr. Patel to see pt. Status up date provided & orders received.
--- NOTE | 2022-11-11 13:51 | NUR ---
Update Urine catheter and right IJ removed. IJ cath tip in tact. Pt tolerated removal well. Dressing to IJ site w/out s/s bleeding. Urinal provided.
--- NOTE | 2022-11-11 14:04 | NUR ---
PRESSURE ULCER EDUCATION: DEFINITION: A pressure ulcer is an area of skin that breaks down when you stay in one position too long. The constant pressure against the skin reduces the blood flow to that area and the affected tissue dies. CAUSES: "Being bedridden or in a wheelchair "Fragile skin "Having a chronic condition, such as diabetes or vascular disease "Inability to move certain parts of your body without assistance "Older age "Incontinence of urine or stool SYMPTOMS: "A reddened area that DOES NOT turn white when pressed on - this can be the beginning of a pressure ulcer "A blister, deep sore or a crater - these can be advanced pressure ulcers FIRST AID: "Relieve the pressure on this area "Keep the area clean and dry "Call your primary doctor if you see any of the above symptoms "DO NOT massage the area "DO NOT use a donut shaped or ring shaped pillow- these actually interfere with the blood flow and cause complications PREVENTION: "Check for pressure ulcers everyday "Change position at least every two hours to relieve pressure "Use items that help relieve pressure- pillows, sheepskin, foam padding, and powders. "Keep skin clean and dry "Eat healthy well balanced meals "Exercise daily IF YOU SEE ANY OF THESE SYMPTOMS WHILE IN THE HOSPITAL - TELL YOUR NURSE IMMEDIATELY. IF YOU SEE ANY OF THESE SYMPTOMS WHILE AT HOME OR HAVE ANY QUESTIONS OR CONCERNS ABOUT PRESSURE ULCERS - CALL YOUR PRIMARY DOCTOR IMMEDIATELY. Addendum: 11/11/22 at 1405 by Jamila Corrigan RN Amended: Links added.
--- NOTE | 2022-11-11 18:25 | NUR ---
Patient in room ICU 2043. I have received report from Jayden TURCIOS and had the opportunity to ask questions and assume patient care.
--- NOTE | 2022-11-11 18:30 | NUR ---
Problems reprioritized. Patient report given, questions answered & plan of care reviewed with Simran TURCIOS.
[2022-11-11] MEDS: morphine 2 MG/ML inj. syringe IV PRN (20:23)
[2022-11-11] MEDS: insulin glargine (Lantus) pen - multi-dose SQ SCH (21:38)
[2022-11-12] VITALS (13 sets, daily range): BP systolic 132–153; BP diastolic 62–83
[2022-11-12] MEDS: morphine 2 MG/ML inj. syringe IV PRN (01:58)
[2022-11-12] MEDS: VANCOMYCIN 1,500MG in normal saline IV soln 300 ML IV SCH ×2 (01:59→14:31)
--- NOTE | 2022-11-12 06:19 | NUR ---
Problems reprioritized. Patient report given, questions answered & plan of care reviewed with Jayden TURCIOS.
[2022-11-12 06:25] LABS: BASOPHILS # (AUTO) 0.1 X10'3 (0-0.2); BASOPHILS % (AUTO) 0.5 % (0-1); EOSINOPHILS # (AUTO) 0.4 X10'3 (0-0.9); EOSINOPHILS % (AUTO) 3.3 % (0-6); HEMATOCRIT 38.6 % (42.0-52.0); HEMOGLOBIN 12.9 g/dl (14.0-17.9); LYMPHOCYTES % (AUTO) 17.2 % (21-51); MEAN CORPUSCULAR HGB CONC 33.6 g/dL (33.0-36.5); MEAN CORPUSCULAR VOLUME 95.4 FL (78-98); MEAN PLATELET VOLUME 8.2 FL (7.4-10.4); MONOCYTES # (AUTO) 0.9 X10'3 (0-0.9); MONOCYTES % (AUTO) 7.6 % (2-12); NEUTROPHILS # (AUTO) 8.3 X10'3 (1.8-7.7); NEUTROPHILS % (AUTO) 71.4 % (42-75); PLATELET COUNT 293 X10'3 (140-440); RED BLOOD COUNT 4.05 X10'6 (4.70-6.10); RED CELL DISTRIBUTION WIDTH 13.1 % (11.5-14.5); WHITE BLOOD COUNT 11.7 X10'3 (4.5-11.0)
[2022-11-12 06:40] LABS: ALANINE AMINOTRANSFERASE 32 U/L (12-78); ALBUMIN 2.8 G/DL (3.4-5.0); ALBUMIN/GLOBULIN RATIO 0.8 (1.1-1.5); ALKALINE PHOSPHATASE 74 IU/L (46-116); ANION GAP 7 (8-16); ASPARTATE AMINO TRANSFERASE 15 U/L (10-37); BILIRUBIN,TOTAL 0.4 MG/DL (0.1-1.0); BLOOD UREA NITROGEN 16 MG/DL (7-18); BUN/CREATININE RATIO 17.6 (10.0-20.0); CALCIUM 8.7 MG/DL (8.5-10.1); CHLORIDE 100 MMOL/L (99-107); CREATININE 0.91 MG/DL (0.60-1.10); GLUCOSE 151 MG/DL (70-104); SODIUM 134 MMOL/L (135-145); TOTAL PROTEIN 6.5 G/DL (6.4-8.2); eGFR 84 ML/MIN
[2022-11-12] MEDS: aspirin 81mg, enteric-coated 1 TAB TABLET.DR PO SCH (07:12)
[2022-11-12] MEDS: CefTRIAXone/D5W-Rocephin 1gm 50 ML IV SCH (07:12)
[2022-11-12] MEDS: pantoprazole 40mg Tablet.DR PO SCH (07:12)
[2022-11-12] MEDS: docusate sod 100mg capsule PO SCH ×2 (07:12→20:10)
[2022-11-12] MEDS: atorvastatin 20mg tablet PO SCH (07:12)
[2022-11-12] MEDS: HYDROcodone/acetaminophen 10/325mg tab PO PRN ×2 (08:51→15:31)
[2022-11-12] MEDS: insulin Lispro (HumaLOG) vial - multi-dose SQ SCH ×3 (09:41→20:24)
--- NOTE | 2022-11-12 11:36 | NUR ---
Reassessment: Per EMR pt POD #2 s/p left above-knee femoropopliteal bypass graft, left common femoral endarterectomy, and inguinal node excisional biopsy. Pt with a wound VAC to left groin per EMR. Pt back on CHO controlled diet and eating well, documented with mostly 100% PO intake while receiving double protein TID meeting roughly 95% estimated energy needs and 100% estimated protein needs. Recommend Clive smoothie or shake BID to assist with wound healing, d/w RN, to be sent pending physician approval. LBM 11/09 per EMR. Pt receiving routine bowel care and with additional PRN bowel care available. Will continue to follow and monitor need for further nutrition intervention. Recommendations: 1. Continue carb controlled diet; double protein TIDWM for satiety and to better meet estimated nutrient needs given large stature 2. Clive ONS BID, d/w RN 11/12, pending physician approval 3. Routine bowel care; utilize PRN bowel regimen given previous 5 days constipation 4. scaled wt this admit; subsequent weekly wt Addendum: 11/12/22 at [address] Amended: Links added.
--- NOTE | 2022-11-12 15:07 | NUR ---
Chair At about 1300, PT came and walked pt about 150 feet as pt has finished eating. Pt was up in the chair after walking with PT. He tolerated walking better than anticipated. Dr. Weaver to see pt when being put into recliner. Updated on condition and POC. No new orders. Plan is to go home tomorrow. Recliner chair with legs up x 1+ hr. Vascular lab here to do study. Pt was assisted from chair back to bed with 2 RN assist. Pt stood fairly well with some pain upon standing at the left groin site. He then stepped to the bed, sat, was positioned to comfort and readied for Vascular US.
--- NOTE | 2022-11-12 18:24 | NUR ---
Problems reprioritized. Patient report given, questions answered & plan of care reviewed with Angela TURCIOS. Addendum: 11/12/22 at 1827 by Jayden Woods RN Report was given to Leigh TURCIOS and not Angela.
[2022-11-12] MEDS: insulin glargine (Lantus) pen - multi-dose SQ SCH (20:25)
[2022-11-13] VITALS (8 sets, daily range): BP systolic 127–148; BP diastolic 60–85
[2022-11-13] MEDS: VANCOMYCIN 1,500MG in normal saline IV soln 300 ML IV SCH ×2 (02:00→16:00)
--- NOTE | 2022-11-13 06:23 | NUR ---
Patient in room ICU 2043. I have received report from Leigh TURCIOS and had the opportunity to ask questions and assume patient care.
[2022-11-13] MEDS: JUVEN Shake w/Arg/Glut/Ca2+Bmb (Juven 19.3gm) pkt 240ml PO SCH ×2 (07:30→17:30)
[2022-11-13] MEDS: pantoprazole 40mg Tablet.DR PO SCH (07:36)
[2022-11-13] MEDS: atorvastatin 20mg tablet PO SCH (07:36)
[2022-11-13] MEDS: aspirin 81mg, enteric-coated 1 TAB TABLET.DR PO SCH (07:37)
[2022-11-13] MEDS: CefTRIAXone/D5W-Rocephin 1gm 50 ML IV SCH (07:37)
[2022-11-13] MEDS: docusate sod 100mg capsule PO SCH ×2 (07:37→20:11)
[2022-11-13] MEDS: HYDROcodone/acetaminophen 10/325mg tab PO PRN ×3 (08:09→20:11)
[2022-11-13 08:25] LABS: BASOPHILS # (AUTO) 0.1 X10'3 (0-0.2); BASOPHILS % (AUTO) 0.5 % (0-1); EOSINOPHILS # (AUTO) 0.3 X10'3 (0-0.9); EOSINOPHILS % (AUTO) 2.5 % (0-6); HEMATOCRIT 39.9 % (42.0-52.0); HEMOGLOBIN 13.2 g/dl (14.0-17.9); LYMPHOCYTES # (AUTO) 1.7 X10'3 (1.1-4.8); LYMPHOCYTES % (AUTO) 15.6 % (21-51); MEAN CORPUSCULAR HEMOGLOBIN 31.8 PG (27.0-31.0); MEAN CORPUSCULAR HGB CONC 32.9 g/dL (33.0-36.5); MEAN CORPUSCULAR VOLUME 96.4 FL (78-98); MEAN PLATELET VOLUME 8.3 FL (7.4-10.4); MONOCYTES # (AUTO) 0.7 X10'3 (0-0.9); MONOCYTES % (AUTO) 6.7 % (2-12); NEUTROPHILS # (AUTO) 8.4 X10'3 (1.8-7.7); NEUTROPHILS % (AUTO) 74.7 % (42-75); PLATELET COUNT 294 X10'3 (140-440); RED BLOOD COUNT 4.14 X10'6 (4.70-6.10); WHITE BLOOD COUNT 11.2 X10'3 (4.5-11.0)
[2022-11-13 08:54] LABS: ALANINE AMINOTRANSFERASE 29 U/L (12-78); ALBUMIN 2.7 G/DL (3.4-5.0); ALBUMIN/GLOBULIN RATIO 0.7 (1.1-1.5); ALKALINE PHOSPHATASE 69 IU/L (46-116); ANION GAP 8 (8-16); ASPARTATE AMINO TRANSFERASE 15 U/L (10-37); BILIRUBIN,TOTAL 0.5 MG/DL (0.1-1.0); BLOOD UREA NITROGEN 16 MG/DL (7-18); BUN/CREATININE RATIO 17.4 (10.0-20.0); CALCIUM 8.7 MG/DL (8.5-10.1); CHLORIDE 100 MMOL/L (99-107); CREATININE 0.92 MG/DL (0.60-1.10); GLUCOSE 132 MG/DL (70-104); POTASSIUM 4.5 MMOL/L (3.5-5.1); SODIUM 135 MMOL/L (135-145); TOTAL CARBON DIOXIDE 27.2 MMOL/L (24-32); TOTAL PROTEIN 6.6 G/DL (6.4-8.2); eGFR 83 ML/MIN
[2022-11-13] MEDS: insulin Lispro (HumaLOG) vial - multi-dose SQ SCH ×2 (09:06→13:50)
--- NOTE | 2022-11-13 09:12 | NUR ---
David garcia came up on breakfast tray - prepared by cafeteria staff and did not have a barcode.
--- NOTE | 2022-11-13 09:42 | NUR ---
Problems reprioritized. Patient report given, questions answered & plan of care reviewed with Batsheva TURCIOS on Telemetry.
--- NOTE | 2022-11-13 10:34 | NUR ---
Transferred Pt transferred to [facility] 3018A. Pt ambulated 80 feet with WC for transfer. Pt then put in WC and positioned to comfort in 3018A. Aster TURCIOS notified and chart delivered to her. Ambulated with standby assist but needs walker for stability. Addendum: 11/13/22 at 1038 by Jayden Woods RN Notified CN on U about pt needing a walker to stabilize when ambulating.
[2022-11-13] MEDS: morphine 2 MG/ML inj. syringe IV PRN (11:03)
--- NOTE | 2022-11-13 13:29 | NUR ---
WOC NOTE: Prevena with good seal and function noted. Patient now on PCU floor. WOC to see next week if he is still in-house.
--- NOTE | 2022-11-13 21:00 | NUR ---
COSMETIC MAKER documentation: I have reviewed and agree with all interventions, assessments performed and documented by Chandni Buckley LVN .
[2022-11-13] MEDS: insulin glargine (Lantus) pen - multi-dose SQ SCH (21:19)
[2022-11-14] MEDS: VANCOMYCIN 1,500MG in normal saline IV soln 300 ML IV SCH ×2 (02:30→15:31)
[2022-11-14] MEDS: HYDROcodone/acetaminophen 10/325mg tab PO PRN ×3 (02:38→16:52)
[2022-11-14 03:00] VITALS: BP 137/98
--- NOTE | 2022-11-14 06:32 | NUR ---
Patient in room [place] [id number]. I have received report from Dixie TURCIOS and had the opportunity to ask questions and assume patient care. Addendum: 11/14/22 at 0633 by Melyssa Miller LVN, LVN Patient in room [place] [id number]. I have received report from Chandni SHINE and had the opportunity to ask questions and assume patient care.
[2022-11-14 07:00] VITALS: BP 129/62
[2022-11-14 07:34] LABS: ALANINE AMINOTRANSFERASE 28 U/L (12-78); ALBUMIN 2.4 G/DL (3.4-5.0); ALBUMIN/GLOBULIN RATIO 0.7 (1.1-1.5); ALKALINE PHOSPHATASE 66 IU/L (46-116); ANION GAP 9 (8-16); ASPARTATE AMINO TRANSFERASE 11 U/L (10-37); BILIRUBIN,TOTAL 0.3 MG/DL (0.1-1.0); BLOOD UREA NITROGEN 19 MG/DL (7-18); BUN/CREATININE RATIO 20.7 (10.0-20.0); CALCIUM 8.6 MG/DL (8.5-10.1); CHLORIDE 100 MMOL/L (99-107); CREATININE 0.92 MG/DL (0.60-1.10); GLUCOSE 174 MG/DL (70-104); SODIUM 136 MMOL/L (135-145); TOTAL CARBON DIOXIDE 26.6 MMOL/L (24-32); eGFR 83 ML/MIN
[2022-11-14] MEDS: atorvastatin 20mg tablet PO SCH (08:18)
[2022-11-14] MEDS: aspirin 81mg, enteric-coated 1 TAB TABLET.DR PO SCH (08:18)
[2022-11-14] MEDS: JUVEN Shake w/Arg/Glut/Ca2+Bmb (Juven 19.3gm) pkt 240ml PO SCH ×2 (08:18→18:09)
[2022-11-14] MEDS: pantoprazole 40mg Tablet.DR PO SCH (08:18)
[2022-11-14] MEDS: docusate sod 100mg capsule PO SCH (08:18)
[2022-11-14] MEDS: CefTRIAXone/D5W-Rocephin 1gm 50 ML IV SCH (08:26)
[2022-11-14 09:53] LABS: BASOPHILS # (AUTO) 0.1 X10'3 (0-0.2); BASOPHILS % (AUTO) 1.1 % (0-1); EOSINOPHILS # (AUTO) 0.5 X10'3 (0-0.9); EOSINOPHILS % (AUTO) 5.5 % (0-6); HEMATOCRIT 36.9 % (42.0-52.0); HEMOGLOBIN 12.4 g/dl (14.0-17.9); LYMPHOCYTES # (AUTO) 1.9 X10'3 (1.1-4.8); LYMPHOCYTES % (AUTO) 22.1 % (21-51); MEAN CORPUSCULAR HGB CONC 33.5 g/dL (33.0-36.5); MEAN CORPUSCULAR VOLUME 95.5 FL (78-98); MEAN PLATELET VOLUME 8.6 FL (7.4-10.4); MONOCYTES # (AUTO) 0.7 X10'3 (0-0.9); MONOCYTES % (AUTO) 7.7 % (2-12); NEUTROPHILS # (AUTO) 5.4 X10'3 (1.8-7.7); NEUTROPHILS % (AUTO) 63.6 % (42-75); PLATELET COUNT 306 X10'3 (140-440); RED BLOOD COUNT 3.86 X10'6 (4.70-6.10); RED CELL DISTRIBUTION WIDTH 12.9 % (11.5-14.5); WHITE BLOOD COUNT 8.5 X10'3 (4.5-11.0)
[2022-11-14 11:00] VITALS: BP 138/67
[2022-11-14] MEDS ORDERED: PANT40TA54 PO (12:52)
[2022-11-14] MEDS ORDERED: DOXY-243 PO (12:52)
--- NOTE | 2022-11-14 13:58 | NUR ---
18A Brice Carter needs a pre DC eval regarding his ability to go up stairs. Page sent to PT.
[2022-11-14 15:00] VITALS: BP 125/61
--- NOTE | 2022-11-14 18:18 | NUR ---
Patient discharged IV's removed discharge orders given. Patient took all belongings. Left in private vehicle with significant other.
== END 2022-11-14 18:00 | disposition home or self-care (01) | DRG 853 ==
LOC: ER 16:55 → ED HOLD 21:36 → ORTHO 4S 11-04 06:58 → ICU 2S 11-10 12:33 → PCU 3S 11-13 10:05
PROVIDERS: ADMIT Family Medicine; ATTEND Family Medicine
PROC: B4201ZZ Computerized Tomography (CT Scan) of Abdominal Aorta using Low Osmolar Contrast (ICD-10-PCS; 2022-11-04)
PROC: B4241ZZ Computerized Tomography (CT Scan) of Superior Mesenteric Artery using Low Osmolar Contrast (ICD-10-PCS; 2022-11-04)
PROC: B4281ZZ Computerized Tomography (CT Scan) of Bilateral Renal Arteries using Low Osmolar Contrast (ICD-10-PCS; 2022-11-04)
PROC: B42C1ZZ Computerized Tomography (CT Scan) of Pelvic Arteries using Low Osmolar Contrast (ICD-10-PCS; 2022-11-04)
PROC: B42H1ZZ Computerized Tomography (CT Scan) of Bilateral Lower Extremity Arteries using Low Osmolar Contrast (ICD-10-PCS; 2022-11-04)
PROC: B4211ZZ Computerized Tomography (CT Scan) of Celiac Artery using Low Osmolar Contrast (ICD-10-PCS; 2022-11-04)
PROC: B41C1ZZ Fluoroscopy of Pelvic Arteries using Low Osmolar Contrast (ICD-10-PCS; 2022-11-06)
PROC: B41G1ZZ Fluoroscopy of Left Lower Extremity Arteries using Low Osmolar Contrast (ICD-10-PCS; 2022-11-06)
PROC: 4A02XM4 Measurement of Cardiac Total Activity, External Approach (ICD-10-PCS; 2022-11-09)
PROC: 3E073KZ Introduction of Other Diagnostic Substance into Coronary Artery, Percutaneous Approach (ICD-10-PCS; 2022-11-09)
PROC: 07BJ0ZX Excision of Left Inguinal Lymphatic, Open Approach, Diagnostic (ICD-10-PCS; 2022-11-10)
PROC: 041L0JL Bypass Left Femoral Artery to Popliteal Artery with Synthetic Substitute, Open Approach (ICD-10-PCS; principal; 2022-11-10 12:16)
DX: A41.9 Sepsis, unspecified organism (principal); N17.0 Acute kidney failure with tubular necrosis; E11.52 Type 2 diabetes mellitus with diabetic peripheral angiopathy with gangrene; E87.1 Hypo-osmolality and hyponatremia; L03.032 Cellulitis of left toe; E11.41 Type 2 diabetes mellitus with diabetic mononeuropathy; E11.42 Type 2 diabetes mellitus with diabetic polyneuropathy; E11.22 Type 2 diabetes mellitus with diabetic chronic kidney disease; N18.9 Chronic kidney disease, unspecified; E11.621 Type 2 diabetes mellitus with foot ulcer; L97.529 Non-pressure chronic ulcer of other part of left foot with unspecified severity; E11.628 Type 2 diabetes mellitus with other skin complications; E11.65 Type 2 diabetes mellitus with hyperglycemia; E78.5 Hyperlipidemia, unspecified; I70.203 Unspecified atherosclerosis of native arteries of extremities, bilateral legs; Z72.0 Tobacco use; Z79.84 Long term (current) use of oral hypoglycemic drugs; Z83.3 Family history of diabetes mellitus; Z88.0 Allergy status to penicillin; Z79.899 Other long term (current) drug therapy
CPT/HCPCS: 36246; 36415; 71045; 73660; 73700; 75635; 75710; 78452; 80053; 80061; 80202; 80305; 81003; 82948; 83036; 83605; 83735; 83880; 84100; 84145; 84443; 84484; 85007; 85025; 85610; 85651; 85730; 86885; 86900; 86901; 87040; 87081; 88300; 88305; 93005; 93017; 93306; 93922; 93926; 93970; 97110; 97116; 97161; 97530; 99152; 99153; 99285; A4349; A4618; A4620; A6449; A6455; A7000; A9500; C1758; C1760; C1768; C1769; C1894; G0269; G0378; J0360; J0696; J1644; J1815; J2250; J2270; J2704; J2710; J2785; J3010; J3370; J3490; J7030; J7040; J7120; Q9967

== ENCOUNTER 2023-01-04 10:18 | Emergency (ER) | payer MEDICARE, MEDICAID ==
[~2023-01-04] VITALS: Ht 190.5 cm; Wt 79.5 kg
[~2023-01-04 10:18] MED LIST: METF-436 PO; PANT40TA54 PO; TRAM50TA2 PO
[2023-01-04 10:46] VITALS: TEMP 98.1
[2023-01-04] MEDS ORDERED: vancomycin/NS 1 GM ADD-VANTAGE 250 ML IV ONE (13:40)
[2023-01-04 14:17] LABS: BASOPHILS # (AUTO) 0.1 X10'3 (0-0.2); BASOPHILS % (AUTO) 0.9 % (0-1); EOSINOPHILS # (AUTO) 0.3 X10'3 (0-0.9); EOSINOPHILS % (AUTO) 3.6 % (0-6); HEMATOCRIT 44.4 % (42.0-52.0); HEMOGLOBIN 14.9 g/dl (14.0-17.9); LYMPHOCYTES # (AUTO) 2.1 X10'3 (1.1-4.8); LYMPHOCYTES % (AUTO) 24.3 % (21-51); MEAN CORPUSCULAR HEMOGLOBIN 31.8 PG (27.0-31.0); MEAN CORPUSCULAR HGB CONC 33.6 g/dL (33.0-36.5); MEAN CORPUSCULAR VOLUME 94.6 FL (78-98); MEAN PLATELET VOLUME 7.9 FL (7.4-10.4); MONOCYTES # (AUTO) 0.4 X10'3 (0-0.9); MONOCYTES % (AUTO) 4.8 % (2-12); NEUTROPHILS # (AUTO) 5.7 X10'3 (1.8-7.7); NEUTROPHILS % (AUTO) 66.4 % (42-75); PLATELET COUNT 260 X10'3 (140-440); RED BLOOD COUNT 4.69 X10'6 (4.70-6.10); RED CELL DISTRIBUTION WIDTH 13.4 % (11.5-14.5); WHITE BLOOD COUNT 8.6 X10'3 (4.5-11.0)
[2023-01-04 14:33] LABS: ALANINE AMINOTRANSFERASE 24 U/L (12-78); ALBUMIN 3.9 G/DL (3.4-5.0); ALBUMIN/GLOBULIN RATIO 1.1 (1.1-1.5); ALKALINE PHOSPHATASE 74 IU/L (46-116); ANION GAP 11 (8-16); ASPARTATE AMINO TRANSFERASE 15 U/L (10-37); BILIRUBIN,TOTAL 0.4 MG/DL (0.1-1.0); BLOOD UREA NITROGEN 15 MG/DL (7-18); BUN/CREATININE RATIO 17.4 (10.0-20.0); CHLORIDE 104 MMOL/L (99-107); CREATININE 0.86 MG/DL (0.60-1.10); GLUCOSE 125 MG/DL (70-104); MAGNESIUM 1.9 MG/DL (1.5-2.4); POTASSIUM 4.2 MMOL/L (3.5-5.1); SODIUM 141 MMOL/L (135-145); TOTAL CARBON DIOXIDE 25.8 MMOL/L (24-32); TOTAL PROTEIN 7.5 G/DL (6.4-8.2); eGFR 89 ML/MIN
[2023-01-04] MEDS ORDERED: OXYC-481 PO (14:52)
[2023-01-04] MEDS ORDERED: CEPH-585 PO (14:52)
[2023-01-04] MEDS ORDERED: HYDROcodone/acetaminophen 10/325mg tab PO ONE (14:55)
[2023-01-04 15:08] VITALS: BP 155/87; PULSE 64; RESP 18; O2SAT 99
--- NOTE | 2023-01-04 16:12 | NUR ---
WOUNDCARE REFERRAL FAXED
== END 2023-01-04 16:53 | disposition home or self-care (01) ==
LOC: ER 10:19
DX: E11.621 Type 2 diabetes mellitus with foot ulcer (principal); L08.89 Other specified local infections of the skin and subcutaneous tissue; I99.8 Other disorder of circulatory system; E11.9 Type 2 diabetes mellitus without complications; Z88.0 Allergy status to penicillin; Z79.899 Other long term (current) drug therapy
CPT/HCPCS: 36415; 71045; 73660; 80053; 82948; 83605; 83735; 84145; 85025; 87040; 93005; 96365; 96366; 99285; J3370; J7030

== ENCOUNTER 2023-03-12 13:21 | Emergency (ER) | payer MEDICARE, MEDICAID ==
[~2023-03-12] VITALS: Ht 190.5 cm; Wt 81.8 kg
[~2023-03-12 13:21] MED LIST changes: +ASPI-611 PO; +OMEG-220 PO; +OXYC-658 PO; -PANT40TA54 PO; +SULF1TAB45 PO; -TRAM50TA2 PO
[2023-03-12 15:06] LABS: BASOPHILS # (AUTO) 0.1 X10'3 (0-0.2); BASOPHILS % (AUTO) 0.4 % (0-1); EOSINOPHILS % (AUTO) 0.2 % (0-6); HEMATOCRIT 45.9 % (42.0-52.0); HEMOGLOBIN 15.1 g/dl (14.0-17.9); LYMPHOCYTES # (AUTO) 0.9 X10'3 (1.1-4.8); LYMPHOCYTES % (AUTO) 7.1 % (21-51); MEAN CORPUSCULAR HEMOGLOBIN 30.9 PG (27.0-31.0); MEAN CORPUSCULAR VOLUME 93.6 FL (78-98); MEAN PLATELET VOLUME 8.4 FL (7.4-10.4); MONOCYTES # (AUTO) 0.3 X10'3 (0-0.9); MONOCYTES % (AUTO) 2.2 % (2-12); NEUTROPHILS # (AUTO) 11.4 X10'3 (1.8-7.7); NEUTROPHILS % (AUTO) 90.1 % (42-75); PLATELET COUNT 274 X10'3 (140-440); WHITE BLOOD COUNT 12.7 X10'3 (4.5-11.0)
[2023-03-12 15:26] LABS: ALANINE AMINOTRANSFERASE 32 U/L (12-78); ALBUMIN 4.1 G/DL (3.4-5.0); ALBUMIN/GLOBULIN RATIO 1.1 (1.1-1.5); ALKALINE PHOSPHATASE 70 IU/L (46-116); ANION GAP 9 (8-16); ASPARTATE AMINO TRANSFERASE 18 U/L (10-37); BILIRUBIN,TOTAL 0.3 MG/DL (0.1-1.0); BLOOD UREA NITROGEN 23 MG/DL (7-18); BUN/CREATININE RATIO 18.5 (10.0-20.0); CALCIUM 9.5 MG/DL (8.5-10.1); CHLORIDE 102 MMOL/L (99-107); CREATININE 1.24 MG/DL (0.60-1.10); GLUCOSE 192 MG/DL (70-104); POTASSIUM 4.3 MMOL/L (3.5-5.1); SODIUM 136 MMOL/L (135-145); TOTAL CARBON DIOXIDE 25.4 MMOL/L (24-32); TOTAL PROTEIN 7.8 G/DL (6.4-8.2); eCRCL 69 ML/MIN; eGFR 59 ML/MIN
[2023-03-12 15:28] LABS: LIPASE 18 U/L (16-77)
[2023-03-12 16:13] VITALS: TEMP 97.5
[2023-03-12 16:38] LABS: BILIRUBIN,URINE NEGATIVE (Neg); CLARITY,URINE SLIGHTLY CLOUDY (Clear); COLOR,URINE YELLOW (Yellow); GLUCOSE, URINE NEGATIVE (Neg); KETONES,URINE TRACE mg/dl (Neg); LEUKOCYTE ESTERASE ,URINE NEGATIVE (Neg); NITRITES, URINE NEGATIVE (Neg); OCCULT BLOOD,URINE LARGE (Neg); PH,URINE 5.5 (4.8-8.0); PROTEIN,URINE 30 mg/dl (Neg); UROBILINOGEN,URINE 0.2 E.U/dL (0.2-1.0)
[2023-03-12 16:48] LABS: UA COLLECTION TYPE URINAL
[2023-03-12 16:50] LABS: WBC,URINE 0-4 /HPF (0-4)
[2023-03-12 16:51] LABS: BACTERIA,URINE FEW /HPF (Neg); MUCUS STRANDS MANY /LPF (Neg); RBC,URINE 20-50 /HPF (0-2); SQUAMOUS EPITHELIAL CELL,UR FEW /LPF (FEW)
[2023-03-12 17:27] VITALS: BP 128/75; PULSE 74; RESP 16; O2SAT 100
== END 2023-03-12 18:06 | disposition home or self-care (01) ==
LOC: ER 13:22
DX: N21.0 Calculus in bladder (principal); E11.9 Type 2 diabetes mellitus without complications; N23 Unspecified renal colic; Z88.0 Allergy status to penicillin; Z79.899 Other long term (current) drug therapy
CPT/HCPCS: 36415; 74176; 80053; 81001; 83690; 85025; 99284